=== PATIENT | female | born 1955 | race Caucasian/White ===

== ENCOUNTER 2019-09-15 08:39 | Outpatient (RCR) | payer SELFPAY | END 2019-09-16 23:59 | disposition home or self-care (01) | LOC: WOUND 08:39 | PROVIDERS: Family Provider Family Medicine; PCP Family Medicine; Visit Provider Nurse Practitioner Family | DX: I96 Gangrene, not elsewhere classified (principal); L89.619 Pressure ulcer of right heel, unspecified stage | CPT/HCPCS: 11042; 87070; 87176; 87205; 99203; 99214; G0463; L3260 ==

== ENCOUNTER 2019-10-16 12:56 | Outpatient (RCR) | payer SELFPAY ==
--- NOTE | 2019-10-06 08:00 | USCV_ITS ---
Geraldine Morris Age: 63 Gender: F : 1955 Exam Date: 10/06/2019 08:04 Ordering Phys: Britni Johnson DO Technologist: Dennise Winston [place] [facility] [place]: HISTORY: non healing ulcer right heel. PROCEDURES: Bilateral duplex Venous Insufficiency study of the Deep and Superficial systems was carried out according to normal protocol with the patient in supine positon for deep system and dependent position for the superficial system. FINDINGS: No DVT or superficial thrombus seen in right or left leg. Reflux noted in SFJ on right and left Vessel diameters and reflux times noted above. The veins were found to be easily compressible with spontaneous blood flow. Non pulsatile flow pattern. CONCLUSIONS No evidence of DVT in the above-mentioned identifiable veins. Significant venous reflux of greater than 500 ms were noted at the saphenofemoral junction bilaterally. The saphenofemoral junctions were found to be more than 1 cm deep from the surface. The venous dimensions, depth from the surface and the reflux times are as mentioned above Dr Denise Pappas MD [facility] (Electronically Signed) Final Date: 06 October 2019 15:29 S
--- NOTE | 2019-10-07 15:45 | USCV_ITS ---
Geraldine Morris Age: 63 Gender: F : 1955 Exam Date: 10/07/2019 15:28 Ordering Phys: Britni Johnson DO Technologist: Tiffanie Jarrett Exam Location: [facility] [place] Indication: REDNESS, NON-HEALING ULCER RIGHT LEFT Brachial 144.00 mmHg Brachial 148.00 mmHg Pressure (mmHg) Waveform Pressure (mmHg) Waveform 145.00 Above Knee 176.00 173.00 Below Knee 165.00 170.00 [employer] 156.00 150.00 DPA 144.00 1.15 Ankle/Brachial Index 1.05 149.00 Pre-Exercise Toe Pressure 146.00 1.01 Pre-Exercise Toe/Brachial Index 0.99 FINDINGS Normal resting ABIs and TBIs bilaterally PVR waveforms showing some blunting of the dicrotic notch CONCLUSIONS No significant arterial obstruction, bilaterally, based on the above findings. Some features of arterio sclerosis Dr Denise Pappas MD [facility] (Electronically Signed) Final Date: 07 October 2019 17:42 S
== END 2019-10-16 23:59 | disposition home or self-care (01) ==
LOC: WOUND 12:56
PROVIDERS: Family Provider Family Medicine; PCP Family Medicine; Visit Provider Emergency Medicine
DX: I96 Gangrene, not elsewhere classified (principal); L97.412 Non-pressure chronic ulcer of right heel and midfoot with fat layer exposed
CPT/HCPCS: 11042; 29581; 93923; 93970

== ENCOUNTER 2019-10-20 14:04 | Outpatient (CLI) | payer SELFPAY | END 2019-10-20 14:05 | disposition home or self-care (01) | LOC: WOUND 14:05 | PROVIDERS: Family Provider Family Medicine; PCP Family Medicine; Visit Provider Nurse Practitioner Family | DX: I96 Gangrene, not elsewhere classified (principal); L89.619 Pressure ulcer of right heel, unspecified stage | CPT/HCPCS: G0463; L3260 ==

== ENCOUNTER 2019-10-23 14:12 | Outpatient (CLI) | payer SELFPAY | END 2019-10-23 14:13 | disposition home or self-care (01) | LOC: WOUND 14:12 | PROVIDERS: Family Provider Family Medicine; PCP Family Medicine; Visit Provider Nurse Practitioner Family | DX: Z51.89 Encounter for other specified aftercare (principal) | CPT/HCPCS: 29581 ==

== ENCOUNTER 2019-10-27 14:44 | Outpatient (RCR) | payer SELFPAY | END 2019-11-16 23:59 | disposition home or self-care (01) | LOC: WOUND 14:44 | PROVIDERS: Family Provider Family Medicine; PCP Family Medicine; Visit Provider Nurse Practitioner Family | DX: I96 Gangrene, not elsewhere classified (principal); L97.412 Non-pressure chronic ulcer of right heel and midfoot with fat layer exposed | CPT/HCPCS: 11042 ==

== ENCOUNTER 2019-10-30 08:11 | Outpatient (CLI) | payer SELFPAY | END 2019-10-30 08:12 | disposition home or self-care (01) | LOC: WOUND 08:11 | PROVIDERS: Family Provider Family Medicine; PCP Family Medicine; Visit Provider Nurse Practitioner Family | DX: Z51.89 Encounter for other specified aftercare (principal) | CPT/HCPCS: G0463 ==

== ENCOUNTER 2019-11-03 10:51 | Outpatient (CLI) | payer SELFPAY | END 2019-11-03 10:52 | disposition home or self-care (01) | LOC: WOUND 10:52 | PROVIDERS: Family Provider Family Medicine; PCP Family Medicine; Visit Provider Nurse Practitioner Family | DX: I96 Gangrene, not elsewhere classified (principal); L89.619 Pressure ulcer of right heel, unspecified stage | CPT/HCPCS: 11042; A6446 ==

== ENCOUNTER → 2019-11-06 11:06 | Outpatient (BNVA) | payer SELFPAY | PROVIDERS: Family Provider Family Medicine; PCP Family Medicine; Visit Provider Internal Medicine Cardiovascular Disease | DX: I87.2 Venous insufficiency (chronic) (peripheral) (principal) | CPT/HCPCS: 80048; 85025; 87635 ==

== ENCOUNTER 2019-11-12 13:44 | Outpatient (CLI) | payer SELFPAY | END 2019-11-12 13:45 | disposition home or self-care (01) | LOC: WOUND 13:45 | PROVIDERS: Family Provider Family Medicine; PCP Family Medicine; Visit Provider Nurse Practitioner Family | DX: I96 Gangrene, not elsewhere classified (principal); L89.619 Pressure ulcer of right heel, unspecified stage | CPT/HCPCS: G0463; L4361; L4387 ==

== ENCOUNTER 2019-11-17 09:56 | Outpatient (CLI) | payer SELFPAY | END 2019-11-17 09:57 | disposition home or self-care (01) | LOC: WOUND 09:57 | PROVIDERS: Family Provider Family Medicine; PCP Family Medicine; Visit Provider Nurse Practitioner Family | DX: I96 Gangrene, not elsewhere classified (principal); L97.412 Non-pressure chronic ulcer of right heel and midfoot with fat layer exposed | CPT/HCPCS: 11042 ==

== ENCOUNTER 2019-11-24 09:42 | Outpatient (CLI) | payer SELFPAY | END 2019-11-24 09:43 | disposition home or self-care (01) | LOC: WOUND 09:43 | PROVIDERS: Family Provider Family Medicine; PCP Family Medicine; Visit Provider Nurse Practitioner Family | DX: I96 Gangrene, not elsewhere classified (principal); L97.412 Non-pressure chronic ulcer of right heel and midfoot with fat layer exposed | CPT/HCPCS: 11042 ==

== ENCOUNTER 2019-12-01 08:56 | Outpatient (CLI) | payer SELFPAY | END 2019-12-01 08:57 | disposition home or self-care (01) | LOC: WOUND 08:57 | PROVIDERS: Family Provider Family Medicine; PCP Family Medicine; Visit Provider Nurse Practitioner Family | DX: I96 Gangrene, not elsewhere classified (principal); L97.412 Non-pressure chronic ulcer of right heel and midfoot with fat layer exposed | CPT/HCPCS: 11042 ==

== ENCOUNTER 2020-05-06 08:24 | Outpatient (CLI) | payer SELFPAY | END 2020-05-06 08:25 | disposition home or self-care (01) | LOC: WOUND 08:25 | PROVIDERS: Family Provider Family Medicine; PCP Family Medicine; Visit Provider Nurse Practitioner Family | DX: L89.613 Pressure ulcer of right heel, stage 3 (principal) | CPT/HCPCS: 11042; 87070; 87077; 87176; 87186; 87205; G0463 ==

== ENCOUNTER 2020-05-20 09:21 | Outpatient (CLI) | payer SELFPAY | END 2020-05-20 09:22 | disposition home or self-care (01) | LOC: WOUND 09:23 | PROVIDERS: Family Provider Family Medicine; PCP Family Medicine; Visit Provider Nurse Practitioner Family | DX: I96 Gangrene, not elsewhere classified (principal); L89.613 Pressure ulcer of right heel, stage 3 | CPT/HCPCS: 11042 ==

== ENCOUNTER 2020-05-27 10:44 | Outpatient (CLI) | payer SELFPAY | END 2020-05-27 10:45 | disposition home or self-care (01) | LOC: WOUND 10:45 | PROVIDERS: Family Provider Family Medicine; PCP Family Medicine; Visit Provider Nurse Practitioner Family | DX: L89.613 Pressure ulcer of right heel, stage 3 (principal) | CPT/HCPCS: 11042 ==

== ENCOUNTER 2020-06-03 10:56 | Outpatient (CLI) | payer SELFPAY | END 2020-06-03 10:57 | disposition home or self-care (01) | LOC: WOUND 10:58 | PROVIDERS: Family Provider Family Medicine; PCP Family Medicine; Visit Provider Nurse Practitioner Family | DX: L89.613 Pressure ulcer of right heel, stage 3 (principal) | CPT/HCPCS: 11042 ==

== ENCOUNTER 2020-06-17 10:24 | Outpatient (CLI) | payer SELFPAY | END 2020-06-17 10:25 | disposition home or self-care (01) | LOC: WOUND 10:25 | PROVIDERS: Family Provider Family Medicine; PCP Family Medicine; Visit Provider Nurse Practitioner Family | DX: I96 Gangrene, not elsewhere classified (principal); L89.613 Pressure ulcer of right heel, stage 3 | CPT/HCPCS: 11042 ==

== ENCOUNTER 2020-06-24 10:06 | Outpatient (CLI) | payer OTHER, SELFPAY | END 2020-06-24 10:07 | disposition home or self-care (01) | LOC: WOUND 10:10 | PROVIDERS: Family Provider Family Medicine; PCP Family Medicine; Visit Provider Nurse Practitioner Family | DX: L89.613 Pressure ulcer of right heel, stage 3 (principal) | CPT/HCPCS: 11042 ==

== ENCOUNTER 2020-07-01 09:24 | Outpatient (CLI) | payer OTHER, SELFPAY | END 2020-07-01 09:25 | disposition home or self-care (01) | LOC: WOUND 09:24 | PROVIDERS: Family Provider Family Medicine; PCP Family Medicine; Visit Provider Nurse Practitioner Family | DX: L89.613 Pressure ulcer of right heel, stage 3 (principal) | CPT/HCPCS: 11042 ==

== ENCOUNTER 2020-07-08 09:27 | Outpatient (CLI) | payer OTHER, SELFPAY | END 2020-07-08 09:28 | disposition home or self-care (01) | LOC: WOUND 09:27 | PROVIDERS: Family Provider Family Medicine; PCP Family Medicine; Visit Provider Nurse Practitioner Family | DX: L89.613 Pressure ulcer of right heel, stage 3 (principal) | CPT/HCPCS: 11042 ==

== ENCOUNTER 2020-07-15 09:27 | Outpatient (CLI) | payer OTHER, SELFPAY | END 2020-07-15 09:28 | disposition home or self-care (01) | LOC: WOUND 09:27 | PROVIDERS: Family Provider Family Medicine; PCP Family Medicine; Visit Provider Nurse Practitioner Family | DX: I96 Gangrene, not elsewhere classified (principal); L89.613 Pressure ulcer of right heel, stage 3 | CPT/HCPCS: 11042 ==

== ENCOUNTER 2020-07-22 09:44 | Outpatient (CLI) | payer OTHER, SELFPAY | END 2020-07-22 09:45 | disposition home or self-care (01) | LOC: WOUND 09:45 | PROVIDERS: PCP Family Medicine; Visit Provider Nurse Practitioner Family | DX: L89.613 Pressure ulcer of right heel, stage 3 (principal) | CPT/HCPCS: 11042 ==

== ENCOUNTER 2020-07-22 13:43 | Outpatient (CLI) | payer OTHER, SELFPAY ==
--- NOTE | 2020-07-22 13:59 | CT_ITS ---
WS: [id number] CT NECK TECHNIQUE: Contrast-enhanced CT of the neck with coronal and sagittal reformatted images. CLINICAL INFORMATION: HX OF HODGKIN'S LYMPHOMA, LOCALIZED SWELLING OF NECK,DYSPNEA COMPARISON: None. DLP: 2014.[address] scans at [facility] use at least one of these dose optimization techniques: automat ed exposure control; mA and/or kV adjustment per patient size (includes targeted exams where dose is matched to clinical indication); or iterative reconstruction. FINDINGS: Bilateral markers lower neck in the area of clinical concern. No evidence of underlying mass or lesio n in the lower neck bilaterally. Underlying external jugular vein near the palpable markers bilateral ly. No suspicious underlying lesions. Parotid glands are normal. Normal submandibular glands. No evidence of supraglottic or glottic mass. Normal piriform sinuses. No cervical lymphadenopathy. Normal thyroid gland. Lung apices are well aerated.Moderate spondylitic changes cervical spine. CT/CT neck w con* [id number] IMPRESSION: 1. No suspicious underlying mass or lesion in the areas of palpable concern. 2. No cervical lymphadenopathy. 3. Normal salivary glands. 4. No evidence of supraglottic or glottic mass.
--- NOTE | 2020-07-22 13:59 | CT_ITS ---
WS: [id number] CT CHEST TECHNIQUE: Contrast enhanced CT of the chest with coronal and sagittal reformatted images. CLINICAL INFORMATION: HX OF HODGKINS LYMPHOMA, LOCALIZED SWELLING OF NECK, DYSPNEA COMPARISON: None. DLP: 571.[address] scans at [facility] use at least one of these dose optimization techniques: automat ed exposure control; mA and/or kV adjustment per patient size (includes targeted exams where dose is matched to clinical indication); or iterative reconstruction. FINDINGS: Mild chronic emphysematous changes. No acute pulmonary infiltrates. Slight subsegmental atelectasis i n the lung bases. No focal pneumonia or pleural fluid. No mediastinal or hilar lymphadenopathy. No axillary lymphadenopathy. Normal caliber thoracic aorta. Proximal main pulmonary arteries are normal. Adrenal glands are normal. Diffuse fatty infiltration liver. Cholecystectomy clips. CT/CT chest w con* [id number] IMPRESSION: 1. Mild chronic emphysematous changes. No acute pulmonary infiltrates. 2. Slight subsegmental atelectasis in the lung bases. 3. No mediastinal or hilar lymphadenopathy. No axillary lymphadenopathy. 4. Diffuse fatty infiltration liver. 5. Cholecystectomy clips.
[2020-07-22 14:48] LABS: Blood Urea Nitrogen 11 mg/dL (8-23); Glomerular Filtration Rate 84.2 mL/min (90-130)
[2020-07-22] MEDS: iohexol 300 mg/mL 100 mL Btl IV ×2 (14:57→15:17)
== END 2020-07-22 13:44 | disposition home or self-care (01) ==
LOC: RADWPI 13:48
PROVIDERS: PCP Family Medicine; Visit Provider Family Medicine
DX: Z85.71 Personal history of Hodgkin lymphoma (principal); R22.1 Localized swelling, mass and lump, neck; R06.00 Dyspnea, unspecified; K76.0 Fatty (change of) liver, not elsewhere classified; J98.11 Atelectasis
CPT/HCPCS: 70491; 71260; 82565; 84520; Q9967

== ENCOUNTER 2020-08-05 09:22 | Outpatient (CLI) | payer OTHER, SELFPAY | END 2020-08-05 09:23 | disposition home or self-care (01) | LOC: WOUND 09:23 | PROVIDERS: PCP Family Medicine; Visit Provider Nurse Practitioner Family | DX: L89.613 Pressure ulcer of right heel, stage 3 (principal) | CPT/HCPCS: 11042 ==

== ENCOUNTER 2020-08-12 09:44 | Outpatient (CLI) | payer OTHER, SELFPAY | END 2020-08-12 09:45 | disposition home or self-care (01) | LOC: WOUND 09:44 | PROVIDERS: PCP Family Medicine; Visit Provider Nurse Practitioner Family | DX: I96 Gangrene, not elsewhere classified (principal); L89.613 Pressure ulcer of right heel, stage 3 | CPT/HCPCS: 11042 ==

== ENCOUNTER 2020-08-19 09:07 | Outpatient (CLI) | payer OTHER, SELFPAY | END 2020-08-19 09:08 | disposition home or self-care (01) | LOC: WOUND 09:07 | PROVIDERS: PCP Family Medicine; Visit Provider Nurse Practitioner Family | DX: L89.613 Pressure ulcer of right heel, stage 3 (principal) | CPT/HCPCS: 11042 ==

== ENCOUNTER 2020-08-26 09:21 | Outpatient (CLI) | payer OTHER, SELFPAY | END 2020-08-26 09:22 | disposition home or self-care (01) | LOC: WOUND 09:22 | PROVIDERS: PCP Family Medicine; Visit Provider Nurse Practitioner Family | DX: L89.613 Pressure ulcer of right heel, stage 3 (principal) | CPT/HCPCS: 11042 ==

== ENCOUNTER 2020-09-02 09:19 | Outpatient (CLI) | payer OTHER, SELFPAY | END 2020-09-02 09:20 | disposition home or self-care (01) | LOC: WOUND 09:19 | PROVIDERS: PCP Family Medicine; Visit Provider Nurse Practitioner Family | DX: L89.613 Pressure ulcer of right heel, stage 3 (principal) | CPT/HCPCS: 11042 ==

== ENCOUNTER 2020-09-09 09:21 | Outpatient (CLI) | payer OTHER, SELFPAY | END 2020-09-09 09:22 | disposition home or self-care (01) | LOC: WOUND 09:22 | PROVIDERS: PCP Family Medicine; Visit Provider Nurse Practitioner Family | DX: I96 Gangrene, not elsewhere classified (principal); L89.613 Pressure ulcer of right heel, stage 3; Z87.891 Personal history of nicotine dependence | CPT/HCPCS: 11042 ==

== ENCOUNTER 2020-09-16 08:45 | Outpatient (CLI) | payer OTHER, SELFPAY | END 2020-09-16 08:46 | disposition home or self-care (01) | LOC: WOUND 08:46 | PROVIDERS: PCP Family Medicine; Visit Provider Nurse Practitioner Family | DX: I96 Gangrene, not elsewhere classified (principal); L89.613 Pressure ulcer of right heel, stage 3; Z87.891 Personal history of nicotine dependence | CPT/HCPCS: 11042 ==

== ENCOUNTER 2020-09-23 08:43 | Outpatient (CLI) | payer OTHER, SELFPAY | END 2020-09-23 08:44 | disposition home or self-care (01) | LOC: WOUND 08:43 | PROVIDERS: PCP Family Medicine; Visit Provider Nurse Practitioner Family | DX: L89.613 Pressure ulcer of right heel, stage 3 (principal) | CPT/HCPCS: 11042 ==

== ENCOUNTER 2020-09-30 09:37 | Outpatient (CLI) | payer OTHER, SELFPAY | END 2020-09-30 09:38 | disposition home or self-care (01) | LOC: WOUND 09:37 | PROVIDERS: PCP Family Medicine; Visit Provider Nurse Practitioner Family | DX: L89.613 Pressure ulcer of right heel, stage 3 (principal) | CPT/HCPCS: 11042 ==

== ENCOUNTER 2020-10-07 09:27 | Outpatient (CLI) | payer OTHER, SELFPAY | END 2020-10-07 09:28 | disposition home or self-care (01) | LOC: WOUND 09:28 | PROVIDERS: PCP Family Medicine; Visit Provider Nurse Practitioner Family | DX: L89.613 Pressure ulcer of right heel, stage 3 (principal) | CPT/HCPCS: 11042 ==

== ENCOUNTER 2020-10-14 08:37 | Outpatient (CLI) | payer OTHER, SELFPAY | END 2020-10-14 08:38 | disposition home or self-care (01) | LOC: WOUND 08:41 | PROVIDERS: PCP Family Medicine; Visit Provider Nurse Practitioner Family | DX: L89.613 Pressure ulcer of right heel, stage 3 (principal) | CPT/HCPCS: 11042 ==

== ENCOUNTER 2020-10-21 09:10 | Outpatient (CLI) | payer OTHER, SELFPAY | END 2020-10-21 09:11 | disposition home or self-care (01) | LOC: WOUND 09:11 | PROVIDERS: PCP Family Medicine; Visit Provider Nurse Practitioner Family | DX: I96 Gangrene, not elsewhere classified (principal); L89.613 Pressure ulcer of right heel, stage 3 | CPT/HCPCS: 11042 ==

== ENCOUNTER 2020-10-22 10:15 | Outpatient (CLI) | payer OTHER, SELFPAY ==
--- NOTE | 2020-10-22 10:23 | XR_ITS ---
WS: [id number] Right foot, 3 views, 10/22/2020 Clinical Data: PRESSURE ULCER R HEEL Comparison: None. Findings: No fractures or dislocations are seen. No bone destruction or erosion is noted. There is a bunion at the head of the right first metatarsal.There is a small Achilles spur and a plantar spur. XR/XR foot RT min 3V* [id number] Impression: Negative for definite soft tissue ulcer of the right foot.
== END 2020-10-22 10:16 | disposition home or self-care (01) ==
PROVIDERS: PCP Family Medicine; Visit Provider Nurse Practitioner Family
DX: L89.619 Pressure ulcer of right heel, unspecified stage (principal)
CPT/HCPCS: 73630

== ENCOUNTER 2020-11-18 08:53 | Outpatient (CLI) | payer MEDICARE, SELFPAY | END 2020-11-18 08:54 | disposition home or self-care (01) | LOC: WOUND 08:57 | PROVIDERS: PCP Family Medicine; Visit Provider Nurse Practitioner Family | DX: I96 Gangrene, not elsewhere classified (principal); L89.613 Pressure ulcer of right heel, stage 3 | CPT/HCPCS: 11042 ==

== ENCOUNTER 2020-11-25 09:01 | Outpatient (CLI) | payer MEDICARE, SELFPAY | END 2020-11-25 09:02 | disposition home or self-care (01) | LOC: WOUND 09:03 | PROVIDERS: PCP Family Medicine; Visit Provider Nurse Practitioner Family | DX: I96 Gangrene, not elsewhere classified (principal); L89.613 Pressure ulcer of right heel, stage 3 | CPT/HCPCS: 11042 ==

== ENCOUNTER 2020-12-02 09:09 | Outpatient (CLI) | payer MEDICARE, SELFPAY | END 2020-12-02 09:10 | disposition home or self-care (01) | LOC: WOUND 09:10 | PROVIDERS: PCP Family Medicine; Visit Provider Nurse Practitioner Family | DX: I96 Gangrene, not elsewhere classified (principal); L89.613 Pressure ulcer of right heel, stage 3 | CPT/HCPCS: 11042 ==

== ENCOUNTER 2020-12-09 09:36 | Outpatient (CLI) | payer MEDICARE, SELFPAY | END 2020-12-09 09:37 | disposition home or self-care (01) | LOC: WOUND 09:37 | PROVIDERS: PCP Family Medicine; Visit Provider Nurse Practitioner Family | DX: L89.613 Pressure ulcer of right heel, stage 3 (principal) | CPT/HCPCS: 11042 ==

== ENCOUNTER 2020-12-16 10:10 | Outpatient (CLI) | payer MEDICARE, SELFPAY | END 2020-12-16 10:11 | disposition home or self-care (01) | LOC: WOUND 10:11 | PROVIDERS: PCP Family Medicine; Visit Provider Nurse Practitioner Family | DX: L89.613 Pressure ulcer of right heel, stage 3 (principal) | CPT/HCPCS: 11042 ==

== ENCOUNTER 2020-12-23 09:38 | Outpatient (CLI) | payer MEDICARE, SELFPAY | END 2020-12-23 09:39 | disposition home or self-care (01) | LOC: WOUND 09:40 | PROVIDERS: PCP Family Medicine; Visit Provider Nurse Practitioner Family | DX: L89.613 Pressure ulcer of right heel, stage 3 (principal) | CPT/HCPCS: 11042 ==

== ENCOUNTER 2021-01-06 10:48 | Outpatient (CLI) | payer MEDICARE, SELFPAY | END 2021-01-06 10:49 | disposition home or self-care (01) | LOC: WOUND 10:50 | PROVIDERS: PCP Family Medicine; Visit Provider Nurse Practitioner Family | DX: L89.613 Pressure ulcer of right heel, stage 3 (principal) | CPT/HCPCS: 11042 ==

== ENCOUNTER 2021-01-13 10:24 | Outpatient (CLI) | payer MEDICARE, SELFPAY | END 2021-01-13 10:25 | disposition home or self-care (01) | LOC: WOUND 10:32 | PROVIDERS: PCP Family Medicine; Visit Provider Nurse Practitioner Family | DX: L89.613 Pressure ulcer of right heel, stage 3 (principal) | CPT/HCPCS: 11042 ==

== ENCOUNTER 2021-01-20 10:57 | Outpatient (CLI) | payer MEDICARE, SELFPAY | END 2021-01-20 10:58 | disposition home or self-care (01) | LOC: WOUND 11:01 | PROVIDERS: PCP Family Medicine; Visit Provider Emergency Medicine | DX: I96 Gangrene, not elsewhere classified (principal); L89.613 Pressure ulcer of right heel, stage 3; Z87.891 Personal history of nicotine dependence | CPT/HCPCS: 15275; C1849 ==

== ENCOUNTER 2021-01-27 11:08 | Outpatient (CLI) | payer MEDICARE, SELFPAY | END 2021-01-27 11:09 | disposition home or self-care (01) | LOC: WOUND 11:10 | PROVIDERS: PCP Family Medicine; Visit Provider Emergency Medicine | DX: L89.613 Pressure ulcer of right heel, stage 3 (principal); Z87.891 Personal history of nicotine dependence | CPT/HCPCS: 99212 ==

== ENCOUNTER 2021-02-03 09:38 | Outpatient (CLI) | payer MEDICARE, SELFPAY | END 2021-02-03 09:39 | disposition home or self-care (01) | LOC: WOUND 09:39 | PROVIDERS: PCP Family Medicine; Visit Provider Nurse Practitioner Family | DX: L89.613 Pressure ulcer of right heel, stage 3 (principal); Z87.891 Personal history of nicotine dependence | CPT/HCPCS: 11042 ==

== ENCOUNTER 2021-02-10 09:13 | Outpatient (CLI) | payer MEDICARE, SELFPAY | END 2021-02-10 09:14 | disposition home or self-care (01) | LOC: WOUND 09:13 | PROVIDERS: PCP Family Medicine; Visit Provider Emergency Medicine | DX: L89.613 Pressure ulcer of right heel, stage 3 (principal) | CPT/HCPCS: 11042 ==

== ENCOUNTER → 2021-02-14 08:37 | Outpatient (BNVA) | payer MEDICARE, SELFPAY | PROVIDERS: PCP Family Medicine; Referring Provider Nurse Practitioner Family; Visit Provider Podiatrist Foot & Ankle Surgery | DX: M79.671 Pain in right foot (principal); R26.89 Other abnormalities of gait and mobility; M24.571 Contracture, right ankle; L97.412 Non-pressure chronic ulcer of right heel and midfoot with fat layer exposed | CPT/HCPCS: 73630; 97760; L4361 ==

== ENCOUNTER 2021-02-14 14:35 | Outpatient (CLI) | payer MEDICARE, SELFPAY | END 2021-02-14 14:36 | disposition home or self-care (01) | LOC: SPT 14:36 | PROVIDERS: PCP Family Medicine; Visit Provider Podiatrist Foot & Ankle Surgery | DX: M79.671 Pain in right foot (principal); R26.89 Other abnormalities of gait and mobility; M24.571 Contracture, right ankle; L97.412 Non-pressure chronic ulcer of right heel and midfoot with fat layer exposed | CPT/HCPCS: 97760; L4361 ==

== ENCOUNTER 2021-02-17 09:31 | Outpatient (CLI) | payer MEDICARE, SELFPAY | END 2021-02-17 09:32 | disposition home or self-care (01) | LOC: WOUND 09:32 | PROVIDERS: PCP Family Medicine; Visit Provider Emergency Medicine | DX: L89.613 Pressure ulcer of right heel, stage 3 (principal); Z87.891 Personal history of nicotine dependence | CPT/HCPCS: 11042 ==

== ENCOUNTER 2021-02-24 09:44 | Outpatient (CLI) | payer MEDICARE, SELFPAY | END 2021-02-24 09:45 | disposition home or self-care (01) | LOC: WOUND 09:46 | PROVIDERS: PCP Family Medicine; Visit Provider Emergency Medicine | DX: L89.613 Pressure ulcer of right heel, stage 3 (principal); Z87.891 Personal history of nicotine dependence | CPT/HCPCS: 11042 ==

== ENCOUNTER 2021-03-03 10:17 | Outpatient (CLI) | payer MEDICARE, SELFPAY | END 2021-03-03 10:18 | disposition home or self-care (01) | LOC: WOUND 10:19 | PROVIDERS: PCP Family Medicine; Visit Provider Emergency Medicine | DX: Z09 Encounter for follow-up examination after completed treatment for conditions other than malignant neoplasm (principal); Z87.891 Personal history of nicotine dependence | CPT/HCPCS: 99212 ==

== ENCOUNTER → 2021-09-14 14:28 | Outpatient (BNVA) | payer MEDICARE, SELFPAY | PROVIDERS: PCP Family Medicine; Referring Provider Family Medicine; Visit Provider Specialist | DX: M25.532 Pain in left wrist (principal); M79.89 Other specified soft tissue disorders | CPT/HCPCS: 73110 ==

== ENCOUNTER 2021-11-22 08:39 | Outpatient (CLI) | payer MEDICARE, SELFPAY ==
--- NOTE | 2021-11-22 08:45 | MR_ITS ---
WS: [id number] MRI LEFT WRIST without CONTRAST. COMPARISON: Radiograph 09/14/2021 and prior MRI 05/07/2017 Multiplanar, multisequence imaging is performed without contrast. This study is extremely limited as patient was unable to remain still for this examination. Despite m ultiple attempts there is significant motion artifact and the positioning of the wrist is suboptimal. There is increased fluid in the distal radial ulnar joint which will often will indicate an injury an d tear to the TFCC. The TFCC is not adequately visualized to confirm tear. Mild narrowing of the radi al ulnar joint space. Grossly the scapholunate ligament is intact. No scaphoid fracture identified. N o marrow edema. There are a few small subchondral cysts noted within the capitate and moderate arthri tis at the STT articulation. Small cup subchondral cyst in the proximal fifth metacarpal. MR/MR wrist LT wo con* [id number] IMPRESSION: 1. Extremely limited evaluation of the wrist due to patient motion and inabili ty to remain still. 2. Increase fluid in the distal radial ulnar joint space may be secondary find ing of a triangular fibrocartilage complex tear. 3. 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 4. No fractures or marrow edema.
== END 2021-11-22 08:40 | disposition home or self-care (01) ==
LOC: RAD 08:41
PROVIDERS: PCP Family Medicine; Visit Provider Specialist
DX: M25.532 Pain in left wrist (principal)
CPT/HCPCS: 73221

== ENCOUNTER → 2021-12-26 10:32 | Outpatient (BNVA) | payer MEDICARE, SELFPAY | PROVIDERS: PCP Family Medicine; Visit Provider Specialist | DX: M18.12 Unilateral primary osteoarthritis of first carpometacarpal joint, left hand (principal); R22.32 Localized swelling, mass and lump, left upper limb; M25.532 Pain in left wrist; M25.372 Other instability, left ankle; R26.89 Other abnormalities of gait and mobility | CPT/HCPCS: 99213 ==

== ENCOUNTER → 2022-02-13 10:13 | Outpatient (BNVA) | payer MEDICARE, SELFPAY | PROVIDERS: PCP Family Medicine; Referring Provider Specialist; Visit Provider Specialist | DX: G56.03 Carpal tunnel syndrome, bilateral upper limbs (principal); G56.21 Lesion of ulnar nerve, right upper limb | CPT/HCPCS: 95910; 95913 ==

== ENCOUNTER → 2022-02-22 09:40 | Outpatient (BNVA) | payer MEDICARE, SELFPAY | PROVIDERS: PCP Family Medicine; Visit Provider Podiatrist Foot & Ankle Surgery | DX: M25.372 Other instability, left ankle (principal); R26.89 Other abnormalities of gait and mobility | CPT/HCPCS: 99214 ==

== ENCOUNTER → 2022-03-07 11:23 | Outpatient (BNVA) | payer MEDICARE, SELFPAY | PROVIDERS: PCP Family Medicine; Visit Provider Podiatrist Foot & Ankle Surgery | DX: M25.372 Other instability, left ankle (principal); R26.89 Other abnormalities of gait and mobility | CPT/HCPCS: 99213; 99214 ==

== ENCOUNTER → 2022-04-10 13:50 | Outpatient (BNVA) | payer MEDICARE, SELFPAY | PROVIDERS: PCP Family Medicine; Visit Provider Podiatrist Foot & Ankle Surgery | DX: M25.372 Other instability, left ankle (principal); R26.89 Other abnormalities of gait and mobility | CPT/HCPCS: 99214 ==

== ENCOUNTER → 2022-04-25 14:42 | Outpatient (BNVA) | payer MEDICARE, SELFPAY | PROVIDERS: PCP Family Medicine; Visit Provider Podiatrist Foot & Ankle Surgery | DX: M25.372 Other instability, left ankle (principal); R26.89 Other abnormalities of gait and mobility; L97.419 Non-pressure chronic ulcer of right heel and midfoot with unspecified severity | CPT/HCPCS: 99214 ==

== ENCOUNTER → 2022-05-01 09:34 | Outpatient (BNVA) | payer MEDICARE, SELFPAY | PROVIDERS: PCP Family Medicine; Visit Provider Obstetrics & Gynecology | DX: R53.83 Other fatigue (principal); T81.89XA Other complications of procedures, not elsewhere classified, initial encounter; Y83.8 Other surgical procedures as the cause of abnormal reaction of the patient, or of later complication, without mention of misadventure at the time of the procedure | CPT/HCPCS: 80053; 83036; 84443; 85025 ==

== ENCOUNTER → 2022-05-16 13:03 | Outpatient (BNVA) | payer MEDICARE, SELFPAY | PROVIDERS: PCP Family Medicine; Visit Provider Podiatrist Foot & Ankle Surgery | DX: L97.412 Non-pressure chronic ulcer of right heel and midfoot with fat layer exposed (principal); M25.372 Other instability, left ankle; R26.89 Other abnormalities of gait and mobility | CPT/HCPCS: 11042 ==

== ENCOUNTER → 2022-05-29 10:53 | Outpatient (BNVA) | payer MEDICARE, SELFPAY | PROVIDERS: PCP Family Medicine; Visit Provider Obstetrics & Gynecology | DX: G89.18 Other acute postprocedural pain (principal); N83.312 Acquired atrophy of left ovary; Z90.710 Acquired absence of both cervix and uterus; L97.412 Non-pressure chronic ulcer of right heel and midfoot with fat layer exposed; M25.372 Other instability, left ankle; R26.89 Other abnormalities of gait and mobility | CPT/HCPCS: 76830; 76857; 99213 ==

== ENCOUNTER → 2022-06-14 09:00 | Outpatient (BNVA) | payer MEDICARE, SELFPAY | PROVIDERS: PCP Family Medicine; Visit Provider Podiatrist Foot & Ankle Surgery | DX: L97.412 Non-pressure chronic ulcer of right heel and midfoot with fat layer exposed (principal); M25.372 Other instability, left ankle; R26.89 Other abnormalities of gait and mobility | CPT/HCPCS: 73650; 99214 ==

== ENCOUNTER → 2022-07-05 09:42 | Outpatient (BNVA) | payer MEDICARE, SELFPAY | PROVIDERS: PCP Family Medicine; Visit Provider Podiatrist Foot & Ankle Surgery | DX: M25.372 Other instability, left ankle (principal); R26.89 Other abnormalities of gait and mobility; L97.412 Non-pressure chronic ulcer of right heel and midfoot with fat layer exposed | CPT/HCPCS: 99213 ==

== ENCOUNTER → 2022-08-02 13:07 | Outpatient (BNVA) | payer MEDICARE, SELFPAY | PROVIDERS: PCP Family Medicine; Visit Provider Podiatrist Foot & Ankle Surgery | DX: L97.412 Non-pressure chronic ulcer of right heel and midfoot with fat layer exposed (principal); R26.89 Other abnormalities of gait and mobility; M25.372 Other instability, left ankle; B35.3 Tinea pedis | CPT/HCPCS: 11042; 99213 ==

== ENCOUNTER → 2022-08-23 14:27 | Outpatient (BNVA) | payer MEDICARE, SELFPAY | PROVIDERS: PCP Electrodiagnostic Medicine; Visit Provider Podiatrist Foot & Ankle Surgery | DX: L97.412 Non-pressure chronic ulcer of right heel and midfoot with fat layer exposed (principal); R26.89 Other abnormalities of gait and mobility; M25.372 Other instability, left ankle; M25.371 Other instability, right ankle | CPT/HCPCS: 99214 ==

== ENCOUNTER → 2022-09-12 13:47 | Outpatient (BNVA) | payer MEDICARE, SELFPAY | PROVIDERS: PCP Electrodiagnostic Medicine; Visit Provider Podiatrist Foot & Ankle Surgery | DX: M25.372 Other instability, left ankle (principal); R26.89 Other abnormalities of gait and mobility; L97.412 Non-pressure chronic ulcer of right heel and midfoot with fat layer exposed; M25.371 Other instability, right ankle | CPT/HCPCS: 99213 ==

== ENCOUNTER 2022-09-18 13:15 | Outpatient (CLI) | payer MEDICARE, SELFPAY ==
--- NOTE | 2022-09-18 | XR_ITS ---
WS: [id number] DEXA (DUAL ENERGY X-RAY ABSORPTIOMETRY) Bone mineral density was performed using a Qapa machine. HISTORY: OSTEOPOROSIS COMPARISON: 01/17/2017 Lumbar spine BMD (L1-L3): 1.192 T score: 0.2 Z score: 1.3 Total hip BMD: Left: 1.034 g/cm2. T score: 0.2 Z score: 1.1 Right: 0.906 g/cm2. T score: -0.8 Z score: 0.1 10 year probability of a major osteoporotic fracture is 13.1%. Compared to the prior study from 01/17/2017. Lumbar spine bone mineral density has increased by 11.0%. Bilateral hips bone mineral density has increased by 5.9%. XR/XR DEXA axial skeleton* [id number] IMPRESSION: NORMAL BONE MINERAL DENSITY based upon the WHO classification for females. Significant increase in bone mineral density within the lumbar spine and hips s chiquita the prior study.
--- NOTE | 2022-09-18 | MM_ITS ---
WS: [id number] BILATERAL 3D TOMOSYNTHESIS DIGITAL SCREENING MAMMOGRAPHY WITH CAD CLINICAL INFORMATION: SCREENING HISTORY: Screening mammogram. No current complaints. COMPARISON: 2017 TECHNIQUE: Bilateral CC and MLO views. FINDINGS: Scattered fibroglandular densities bilaterally. No suspicious focal mass, asymmetry, calcifications, or architectural distortion. No evidence of malignancy. Incidental secretory and punctate calcificati ons. Lucent centered calcifications. Vascular calcification. MM/[place] [id number] IMPRESSION: BI-RADS: 2-Benign FOLLOW UP: 1 Year Follow-up Recommend return to annual screening mammography.
== END 2022-09-18 13:16 | disposition home or self-care (01) ==
PROVIDERS: PCP Electrodiagnostic Medicine; Visit Provider Nurse Practitioner Family
DX: M81.0 Age-related osteoporosis without current pathological fracture (principal); Z12.31 Encounter for screening mammogram for malignant neoplasm of breast
CPT/HCPCS: 77063; 77067; 77080

== ENCOUNTER → 2022-10-04 13:46 | Outpatient (BNVA) | payer MEDICARE, SELFPAY | PROVIDERS: PCP Electrodiagnostic Medicine; Visit Provider Podiatrist Foot & Ankle Surgery | DX: L97.412 Non-pressure chronic ulcer of right heel and midfoot with fat layer exposed (principal); M25.372 Other instability, left ankle; R26.89 Other abnormalities of gait and mobility; M25.371 Other instability, right ankle | CPT/HCPCS: 99213 ==

== ENCOUNTER → 2022-10-25 13:57 | Outpatient (BNVA) | payer MEDICARE, SELFPAY | PROVIDERS: PCP Electrodiagnostic Medicine; Visit Provider Podiatrist Foot & Ankle Surgery | DX: Z51.89 Encounter for other specified aftercare (principal); M25.372 Other instability, left ankle; R26.89 Other abnormalities of gait and mobility; M25.371 Other instability, right ankle | CPT/HCPCS: 99213 ==

== ENCOUNTER → 2022-10-31 09:55 | Outpatient (BNVA) | payer MEDICARE, SELFPAY | PROVIDERS: PCP Electrodiagnostic Medicine; Visit Provider Internal Medicine Cardiovascular Disease | DX: L98.499 Non-pressure chronic ulcer of skin of other sites with unspecified severity (principal); I87.2 Venous insufficiency (chronic) (peripheral); R03.0 Elevated blood-pressure reading, without diagnosis of hypertension | CPT/HCPCS: 99204 ==

== ENCOUNTER 2022-11-09 11:59 | Outpatient (CLI) | payer MEDICARE, SELFPAY ==
--- NOTE | 2022-11-09 12:30 | USCV_ITS ---
Geraldine Morris Age: 66 Gender: F : 1955 Exam Date: 11/09/2022 12:44 Ordering Phys: Denise Pappas MD ([email or web address]) Technologist: FUENTES Exam Location[place] [facility] [place]: HISTORY: PROCEDURES: FINDINGS: All deep veins demonstrated compressibility without evidence of intraluminal thrombus or increased echogenicity. Spectral analysis of Doppler signals demonstrates normal response to compression maneuvers indicating patency without obstruction. Reflux determinations were made with the patient in the dependent position, the weight being on the contralateral leg. No notable reflux was seen at this time. The veins were found to be easily compressible with spontaneous blood flow. Non pulsatile flow pattern. CONCLUSIONS No DVTin the bilateral lower extremities. No evidence of any significant insufficiency, bilaterally Dr Denise Pappas MD [facility] (Electronically Signed) Final Date: 11 December 2022 10:02 S
== END 2022-11-09 12:00 | disposition home or self-care (01) ==
LOC: RAD 12:04
PROVIDERS: PCP Electrodiagnostic Medicine; Visit Provider Internal Medicine Cardiovascular Disease
DX: L97.422 Non-pressure chronic ulcer of left heel and midfoot with fat layer exposed (principal)
CPT/HCPCS: 93970

== ENCOUNTER → 2022-11-16 14:59 | Outpatient (BNVA) | payer MEDICARE, SELFPAY | PROVIDERS: PCP Electrodiagnostic Medicine; Visit Provider Podiatrist Foot & Ankle Surgery | DX: Z51.89 Encounter for other specified aftercare (principal); M25.372 Other instability, left ankle; R26.89 Other abnormalities of gait and mobility; M25.371 Other instability, right ankle; L97.411 Non-pressure chronic ulcer of right heel and midfoot limited to breakdown of skin | CPT/HCPCS: 99213 ==

== ENCOUNTER → 2022-11-29 14:39 | Outpatient (BNVA) | payer MEDICARE, SELFPAY | PROVIDERS: PCP Electrodiagnostic Medicine; Referring Provider Electrodiagnostic Medicine; Visit Provider Specialist | DX: M25.551 Pain in right hip (principal); M25.552 Pain in left hip; M53.3 Sacrococcygeal disorders, not elsewhere classified; G89.29 Other chronic pain | CPT/HCPCS: 73523; 99204 ==

== ENCOUNTER → 2022-12-07 15:24 | Outpatient (BNVA) | payer MEDICARE, SELFPAY | PROVIDERS: PCP Electrodiagnostic Medicine; Visit Provider Podiatrist Foot & Ankle Surgery | DX: M25.372 Other instability, left ankle (principal); R26.89 Other abnormalities of gait and mobility; M25.371 Other instability, right ankle; L97.411 Non-pressure chronic ulcer of right heel and midfoot limited to breakdown of skin | CPT/HCPCS: 99213 ==

== ENCOUNTER → 2022-12-27 11:28 | Outpatient (BNVA) | payer MEDICARE, SELFPAY | PROVIDERS: PCP Electrodiagnostic Medicine; Visit Provider Podiatrist Foot & Ankle Surgery | DX: Z51.89 Encounter for other specified aftercare (principal); M25.372 Other instability, left ankle; R26.89 Other abnormalities of gait and mobility; M25.371 Other instability, right ankle; L97.411 Non-pressure chronic ulcer of right heel and midfoot limited to breakdown of skin | CPT/HCPCS: 99213 ==

== ENCOUNTER → 2023-03-27 10:27 | Outpatient (BNVA) | payer MEDICARE, SELFPAY | PROVIDERS: PCP Electrodiagnostic Medicine; Visit Provider Podiatrist Foot & Ankle Surgery | DX: M25.372 Other instability, left ankle (principal); M25.371 Other instability, right ankle | CPT/HCPCS: 99213 ==

== ENCOUNTER → 2023-09-25 11:25 | Outpatient (BNVA) | payer MEDICARE, SELFPAY | PROVIDERS: PCP Electrodiagnostic Medicine; Visit Provider Podiatrist Foot & Ankle Surgery | DX: M25.372 Other instability, left ankle (principal); R26.9 Unspecified abnormalities of gait and mobility; Z91.81 History of falling | CPT/HCPCS: 99213 ==

== ENCOUNTER 2023-09-26 10:37 | Outpatient (CLI) | payer MEDICARE, SELFPAY ==
--- NOTE | 2023-09-26 10:41 | MM_ITS ---
WS: [id number] BILATERAL SCREENING DIGITAL TOMOSYNTHESIS MAMMOGRAM WITH CAD HISTORY: SCREENING COMPARISON: 09/18/2022, 01/17/2017 Bilateral CC and MLO views with tomosynthesis and synthetic mammography submitted. Computer aided det ection analyzed. Breast composition: There are scattered areas of fibroglandular density. No suspicious masses, microc alcifications or architectural distortion. Benign calcifications in each breast. IMPRESSION: MM/[place] [id number] BI-RADS: 2-Benign FOLLOW UP: 1 Year Follow-up
== END 2023-09-26 10:38 | disposition home or self-care (01) ==
LOC: RAD 10:38
PROVIDERS: PCP Electrodiagnostic Medicine; Visit Provider Nurse Practitioner Family
DX: Z12.31 Encounter for screening mammogram for malignant neoplasm of breast (principal)
CPT/HCPCS: 77063; 77067

== ENCOUNTER → 2024-01-29 13:59 | Outpatient (BNVA) | payer MEDICARE, SELFPAY | PROVIDERS: PCP Electrodiagnostic Medicine; Referring Provider Nurse Practitioner Family; Visit Provider Internal Medicine Cardiovascular Disease | DX: R07.9 Chest pain, unspecified (principal); R00.2 Palpitations; I10 Essential (primary) hypertension; R94.31 Abnormal electrocardiogram [ECG] [EKG]; Z87.891 Personal history of nicotine dependence | CPT/HCPCS: 93005; 99214 ==

== ENCOUNTER 2024-02-11 12:26 | Outpatient (CLI) | payer MEDICARE, SELFPAY ==
[2024-02-11 13:10] LABS: Basophils # 0.1 10^3/uL (0.0-0.1); Basophils % 0.8 %; Eosinophils # 0.2 10^3/uL (0.0-0.8); Eosinophils % 2.8 %; Hematocrit 43.5 % (36-47); Lymphocytes % 37.9 %; Mean Corpuscular HGB Conc 33.1 g/dL (30-55); Mean Corpuscular Hemoglobin 29.7 pg (27-33); Mean Corpuscular Volume 89.7 fl (85-98); Mean Platelet Volume 13.4 fL (7.4-10.4); Monocytes # 0.6 10^3/uL (0.2-0.9); Monocytes % 7.6 %; Neutrophils # 4.05 10^3/uL (1.8-7.7); Neutrophils % 50.5 %; Nucleated Red Blood Cells % 0 %; Platelet Count 219 10^3/cmm (157-399); Red Blood Count 4.85 10^6/uL (3.85-5.65); Red Cell Distribution Width 14.6 % (12.1-15.1)
[2024-02-11 13:30] LABS: Slide Review Slide Review Perform
[2024-02-11 13:36] LABS: Anion Gap 14.5 (5-19); Blood Urea Nitrogen 10 mg/dL (8-23); Calcium 8.9 mg/dL (8.5-10.5); Carbon Dioxide 26 mmol/L (22-29); Chloride 104 mmol/L (98-107); Glomerular Filtration Rate 99.4 mL/min (90-130); Glucose 123 mg/dL (65-115); Osmolality Calculated 292 mOsm/kg (285-295); Potassium 3.5 mmol/L (3.5-5.1); Sodium 141 mmol/L (136-145)
== END 2024-02-11 12:27 | disposition home or self-care (01) ==
LOC: LAB 12:27
PROVIDERS: PCP Electrodiagnostic Medicine; Visit Provider Internal Medicine Cardiovascular Disease
DX: I10 Essential (primary) hypertension (principal); R00.2 Palpitations; I87.2 Venous insufficiency (chronic) (peripheral)
CPT/HCPCS: 36415; 80048; 84443; 85025

== ENCOUNTER → 2024-02-15 11:00 | Outpatient (BNVA) | payer MEDICARE, SELFPAY | PROVIDERS: PCP Electrodiagnostic Medicine; Visit Provider Nurse Practitioner Family | DX: I48.0 Paroxysmal atrial fibrillation (principal) | CPT/HCPCS: 99214 ==

== ENCOUNTER 2024-03-31 11:49 | Outpatient (CLI) | payer MEDICARE, SELFPAY ==
--- NOTE | 2024-03-31 12:00 | USCV_ITS ---
Geraldine Morris Age: 68 Gender: F : 1955 Exam Date: 03/31/2024 12:15 Ordering Phys: Sirena Johnson Technologist: [place] [facility] [place]: BP: 151 / 73 HR: 49 Rhythm: Sinus Technical Quality: Adequate MEASUREMENTS (Male / Female) Normal Values 2D ECHO LVOT Diameter 2.4 cm LV Ejection Fraction MOD 4C 59.7 % LV Ejection Fraction MOD 2C 71.9 % LV Ejection Fraction 2C AL 75.1 % LA Diameter 2.9 cm RA Systolic Volume 4C AL 38.7 ml RA Systolic Volume 4C MOD 38.6 ml LA Sys Volume AL 56.6 cm cubed LA Sys Volume Index AL 29.7 cm cubed/m squared Aorta at Sinotubular Diameter 3.3 cm IVC Diameter 2.0 cm M-MODE LA Ao Ratio MM 1.0 AV Cusp Separation MM 2.5 cm DOPPLER AV Peak Velocity 131.0 cm/s LVOT Peak Velocity 83.0 cm/s AV Area Cont Eq vti 3.3 cm squared AV Area Cont Eq pk 3.0 cm squared MV Peak Velocity 80.0 cm/s MV Area PHT 2.3 cm squared Mitral E to A Ratio 1.0 TV Peak Velocity 257.5 cm/s TR Peak Velocity 259.0 cm/s TR Peak Gradient 26.8 mmHg TV Peak E Velocity 69.0 cm/s Right Atrial Pressure 3.0 mmHg Pulmonary Artery Systolic Pressu 29.8 mmHg PV Peak Velocity 83.5 cm/s FINDINGS Left Ventricle Normal left ventricular size and systolic function, EF 65%. No regional wall motion abnormalities. Right Ventricle The right ventricle is normal in size and function. Right Atrium The right atrium is normal in size. Left Atrium The left atrium is normal in size. Mitral Valve Mild to moderate mitral valve regurgitation. Minimally thickened anterior mitral leaflet Aortic Valve Minimally thickened aortic valve Tricuspid Valve Trace to mild tricuspid valve regurgitation. Pulmonic Valve No gross abnormalities noted Pericardium Normal pericardium without effusion. Aorta Dilated ascending aorta measuring 4.37 cm. At the junction of sinotubular junction, the aorta measured 3.25 cm and at the level of the sinuses, it measured a 4.11 cm IVC Normal inferior vena cava. CONCLUSIONS Normal left ventricular size and systolic function, EF 65%. No regional wall motion abnormalities. Dilated ascending aorta measuring 4.37 cm. At the junction of sinotubular junction, the aorta measured 3.25 cm and at the level of the sinuses, it measured a 4.11 cm. Mild to moderate mitral valve regurgitation. Minimally thickened anterior mitral leaflet. Trace to mild tricuspid valve regurgitation. Minimally thickened aortic valve. Estimated pulmonary artery peak systolic pressure 30 mmHg There is no pericardial effusion. There are no intracardiac masses. No similar previous studies are available for comparison Dr Denise Pappas MD [facility] (Electronically Signed) Final Date: 08 April 2024 08:23 S
== END 2024-03-31 11:50 | disposition home or self-care (01) ==
LOC: RAD 11:50
PROVIDERS: PCP Electrodiagnostic Medicine; Visit Provider Nurse Practitioner Family
DX: I34.0 Nonrheumatic mitral (valve) insufficiency (principal); I77.819 Aortic ectasia, unspecified site; I49.9 Cardiac arrhythmia, unspecified; I47.10 Supraventricular tachycardia, unspecified; I48.91 Unspecified atrial fibrillation
CPT/HCPCS: 93306

== ENCOUNTER 2024-04-29 13:29 | Outpatient (CLI) | payer MEDICARE, SELFPAY ==
[2024-04-29 13:58] LABS: Blood Urea Nitrogen 9 mg/dL (8-23); Glomerular Filtration Rate 83.2 mL/min (90-130)
[2024-04-29] MEDS: iohexol 350 mg/mL 500 mL Btl (per mL) IV (14:08)
--- NOTE | 2024-04-29 14:30 | CT_ITS ---
WS: [id number] CTA THORACIC AORTA WITH AND WITHOUT CONTRAST HISTORY: ascending aortic aneurysm TECHNIQUE: CTA imaging of the thorax is performed with and without contrast. After noncontrast imagin g is performed, CT angiogram is performed during injection of Omnipaque 350; 100 mL IV.. Sagittal and coronal reconstructions, sagittal and coronal MIP imaging is submitted. All CT scans at [facility] use at least one of these dose optimization techniques: automated exposure control; mA and/or kV adjustment per patient size (includes targeted exams where dose is matched to clinical indication) ; or iterative reconstruction. DLP: 546.22 mGy.cm COMPARISON: 07/22/2020 CT. Echocardiogram 03/31/2024 Mild dilatation of the ascending thoracic aorta. Maximum diameter of the ascending aorta 4.5 cm. Sino tubular junction 3.7 cm. Sinus of Valsalva 4.2 cm. Mildly ectatic dilated ascending aorta tapers to t he arch. Descending aorta is normal. Scattered calcified plaque. No dissection. Mildly dilated pulmon sandor artery. No RIGHT heart strain. Moderate cardiomegaly. There is tricuspid regurgitation into the h epatic veins. No pulmonary mass or nodule. No pneumonia. Focal cortical thinning superior pole LEFT kidney. No adrenal mass. Prior cholecystectomy. Increase i n focal kyphosis centered at the thoracolumbar junction. CT/CT angio chest [id number] IMPRESSION: 1. Mild aneurysmal dilatation of the ascending thoracic aorta. Maximum diamete r 4.5 cm. No aortic dissection. Minimal increase in size since the chest CT of 07/22/2020. 2. Moderate cardiomegaly. 3. No pneumonia.
== END 2024-04-29 13:30 | disposition home or self-care (01) ==
LOC: RAD 13:30
PROVIDERS: PCP Electrodiagnostic Medicine; Visit Provider Nurse Practitioner Family
DX: I71.21 Aneurysm of the ascending aorta, without rupture (principal); I51.7 Cardiomegaly; I36.1 Nonrheumatic tricuspid (valve) insufficiency; Z90.49 Acquired absence of other specified parts of digestive tract; M40.204 Unspecified kyphosis, thoracic region; I48.0 Paroxysmal atrial fibrillation; R53.82 Chronic fatigue, unspecified; I10 Essential (primary) hypertension
CPT/HCPCS: 71275; 82565; 84520; 99214

== ENCOUNTER 2024-05-14 09:04 | Outpatient (CLI) | payer MEDICARE, SELFPAY ==
[2024-05-14 09:15] VITALS: BMI 30.1
--- NOTE | 2024-05-14 09:35 | ECG_ITS ---
[employer] Test Date: 2024-05-14 Pat Name: Geraldine Morris Department: Room: Gender: Female Director Of Brand Marketing: : 1955 Requested By: Denise Pappas Order Number: [id number] Alexandre MD: Denise Pappas M.D. Interpretive Statements Lung unchanged pre/post procedure; Intraprocedure shortess of breath; Symptoms resoled by discharge PROCEDURE: At the baseline, the EKG revealed normal sinus rhythm with a frequent PVCs.. The baseline heart was 58 bpm with a blood pressue of 159/100 mm of Hg Lexiscan was infused over a period of 20 seconds. A total of 0.4 milligrams of Lexiscan was infused. The stress phase was continued for a total of 5 minutes. Heart rate at the end of the stress phase was 74 bpm with a blood pressure 116/82 mm of Hg. The EKG at the peak infusion revealed disappearance of the PVCs.. Sestamibi was injected 20 seconds after the Lexiscan infusion. Heart rate at the end of the recovery phase was 73 bpm with a blood pressure of 127/72 mm of Hg. CONCLUSION: 1. No significant EKG changes with the LexiScan infusion 2. No LexiScan induced chest pain or cardiac arrhythmia. The baseline ventricular arrhythmia got improved with the Lexiscan infusion 3. Normal blood pressure and heart rate response 4. Sestamibi/sestamibi perfusion scan pending; see separate report. Electronically Signed On 05-14-2024 19:56:52 [employer] by Denise Pappas M.D. [email or web address]
--- NOTE | 2024-05-14 09:35 | NMCV_ITS ---
NM deric perf SPECT r/s* [id number] Geraldine Morris Age: 68 Gender: F : 1955 Exam Date: 05/14/2024 10:07 Ordering Phys: Denise Pappas MD ([email or web address]) Technologist: MARY Perera Exam Location: [facility] Indications: cp STRESS TEST Please [facility] for [facility] findings IMAGE PROTOCOL Rest/Stress 1 Lexiscan Day Radiopharmaceutical Dose (mCi) Administration Site Administered by Rest: Tc-99m 10.8 IV Virginia Stewart, RAW MATERIAL PLANNER Sestamibi Stress:Tc-99m 32.4 IV Virginia Cornellgle, RAW MATERIAL PLANNER Sestamibi Rest: 14-May-2024 60 Discovery 630 Stress: 14-May-2024 30 Discovery 630 0.4mg Lexiscan. Images obtained in supine and prone position. SPECT RESULTS Technical Quality: Good Raw Data Analysis: Normal Image Corrections: No attenuation or motion correction applied Summed Stress Score: 6 Summed Rest Score: 8 Summed Difference Score: 1 PERFUSION FINDINGS Small to moderate area of minimal to moderately decreased tracer uptake involving the basal and mid inferolateral, apical inferior and apical lateral segments. Minimal reversibility was noted in the apical inferior region. FUNCTIONAL RESULTS (calculated via Gated SPECT) Stress Image LV EF (%): 64 Stress EDV (mL):84 TID: 0.82 Stress ESV (mL):30 FUNCTIONAL FINDINGS: Segmental wall motion analysis revealing no gross wall motion abnormalities IMPRESSIONS 1. Myocardial perfusion imaging revealing small to moderate area of minimal to moderately decreased tracer uptake involving the inferolateral, apical lateral and apical inferior region with a very small area of reversibility suggesting myocardial scarring in the distribution of the left circumflex artery/right coronary artery with minimal cuauhtemoc-infarction ischemia. 2. Normal LV ejection fraction 64%. 3. LV wall motion analysis revealing no gross wall motion abnormalities. 4. Normal LV volume No similar previous studies are available for comparison Dr Denise Pappas MD [facility] (Electronically Signed) Final Date: 14 May 2024 14:02 S
[2024-05-14] MEDS: regadenoson 0.4 Mg/5 ml Syringe IVP (10:37)
[2024-05-14 10:45] VITALS: BP 127/72; PULSE 74
== END 2024-05-14 09:05 | disposition home or self-care (01) ==
LOC: CDL 09:05
PROVIDERS: PCP Electrodiagnostic Medicine; Visit Provider Internal Medicine Cardiovascular Disease
DX: Z98.61 Coronary angioplasty status (principal); R94.39 Abnormal result of other cardiovascular function study
CPT/HCPCS: 36415; 78452; 93017; 96374; A9500; J2785

== ENCOUNTER 2024-06-03 20:00 | Outpatient (CLI) | payer MEDICARE, SELFPAY | END 2024-06-03 20:01 | disposition home or self-care (01) | LOC: SLEEP 06-04 00:27 | PROVIDERS: PCP Electrodiagnostic Medicine; Visit Provider Nurse Practitioner Family | DX: G47.33 Obstructive sleep apnea (adult) (pediatric) (principal) | CPT/HCPCS: 95810 ==

== ENCOUNTER → 2024-10-28 10:24 | Outpatient (BNVA) | payer MEDICARE, SELFPAY | PROVIDERS: PCP Electrodiagnostic Medicine; Visit Provider Nurse Practitioner Family | DX: I48.0 Paroxysmal atrial fibrillation (principal); Z79.01 Long term (current) use of anticoagulants; I71.21 Aneurysm of the ascending aorta, without rupture; R53.82 Chronic fatigue, unspecified; Z87.891 Personal history of nicotine dependence; R03.0 Elevated blood-pressure reading, without diagnosis of hypertension; R06.02 Shortness of breath; R00.2 Palpitations | CPT/HCPCS: 36415; 80048; 83880; 85025; 99214 ==

== ENCOUNTER 2025-01-30 14:06 | Outpatient (CLI) | payer MEDICARE, SELFPAY ==
--- NOTE | 2025-01-30 | MM_ITS ---
WS: [id number] BILATERAL 3D TOMOSYNTHESIS DIGITAL SCREENING MAMMOGRAPHY WITH CAD CLINICAL INFORMATION: ANNUAL SCREENING HISTORY: Screening mammogram. No current complaints. COMPARISON: 2023 TECHNIQUE: Bilateral CC and MLO views. FINDINGS: Scattered fibroglandular densities bilaterally. No suspicious focal mass, asymmetry, calcifications, or architectural distortion. No evidence of malignancy. Secretory calcifications RIGHT breast. Vascular calcifications. Lucent centered calcification RIGHT breast. MM/MM scr tomosynthesis [id number] IMPRESSION: DENSITY: There are scattered areas of fibroglandular density. BI-RADS: 2 - Benign. FOLLOW UP: 1 Year Follow-up Recommend return to annual screening mammography.
--- NOTE | 2025-01-30 14:14 | XR_ITS ---
WS: [email or web address] SCREENING DEXA SCAN [place] CLINICAL INFORMATION: OSTEPOROSIS COMPARISON: 2022 FINDINGS: The L1-L4 bone mineral density measures 1.347 g/cm2. This corresponds to a T score score of 1.4 and Z score of 2.4. Left femoral neck bone mineral density measures 1.043 g/cm2. This corresponds to a T score of 0.3 and Z score of 1.2. Right femoral neck bone mineral density measures 0.909 g/cm2. This corresponds to a T score -0.8of and Z score of 0.2. Mean femoral neck bone mineral density measures 0.976 g/cm2. This corresponds to a T score of -0.3 and Z score of 0.7. XR/XR DEXA axial skeleton* [id number] IMPRESSION: Normal bone mineralization lumbar spine and femoral necks.. Patient's FRAX calculated 10 year probability for major osteoporotic fracture i s 13.5% and osteoporotic hip fracture is 1.3%. Bone density femoral necks increased 0.6%
== END 2025-01-30 14:07 | disposition home or self-care (01) ==
LOC: RAD 14:07
PROVIDERS: PCP Electrodiagnostic Medicine; Visit Provider Electrodiagnostic Medicine
DX: Z12.31 Encounter for screening mammogram for malignant neoplasm of breast (principal); Z13.820 Encounter for screening for osteoporosis; R92.323 Mammographic fibroglandular density, bilateral breasts; R92.1 Mammographic calcification found on diagnostic imaging of breast
CPT/HCPCS: 77063; 77067; 77080

== ENCOUNTER 2025-04-16 16:34 | Outpatient (CLI) | payer MEDICARE, SELFPAY ==
--- NOTE | 2025-04-16 16:55 | CT_ITS ---
WS: [id number] CTA THORACIC AORTA WITH AND WITHOUT CONTRAST HISTORY: I71.21 - Aneurysm of the ascending aorta, without rupture TECHNIQUE: CTA imaging of the thorax is performed with and without contrast. After noncontrast imaging is performed, CT angiogram is performed during injection of Omnipaque 350; 100 mL IV.. Sagittal and coronal reconstructions, sagittal and coronal MIP imaging is submitted. All CT scans at [facility] use at least one of these dose optimization techniques: automated exposure control; mA and/or kV adjustment per patient size (includes targeted exams where dose is matched to clinical indication); or iterative reconstruction. DLP: 581.23 mGy.cm COMPARISON: 04/29/2024 Good contrast opacification of the thoracic aorta. Scattered calcified plaque. Good contrast injection. No aortic dissection. Reidentified is the mild dilatation of the ascending aorta with a maximum diameter of 4.4 cm. Through the arch the aorta returns to normal size. Descending thoracic aorta is normal size at 2.7 cm. Normal appearance of the sinotubular junction and aortic root. Mild cardiomegaly. No pericardial or pleural effusions. Pulmonary artery size is normal. No RIGHT heart strain. No mediastinal or hilar adenopathy. Cortical thinning upper pole LEFT kidney. No adrenal mass. Visualized liver is normal. Cervical spondylosis. Lungs are clear. No pneumonia. CT/CT angio chest [id number] IMPRESSION: 1. Stable mild aneurysmal dilatation ascending thoracic aorta, maximum diamete r 4.4 cm. 2. Mild calcified atheromatous plaque throughout the thoracic aorta with no si gnificant progression. 3. Mild cardiomegaly. 4. No RIGHT heart strain.
[2025-04-16] MEDS: iohexol 350 mg/mL 500 mL Btl (per mL) IV (17:59)
[2025-04-16 18:47] LABS: Blood Urea Nitrogen 15 mg/dL (8-23)
== END 2025-04-16 16:35 | disposition home or self-care (01) ==
LOC: RAD 16:37
PROVIDERS: PCP Electrodiagnostic Medicine; Visit Provider Nurse Practitioner Family
DX: I71.21 Aneurysm of the ascending aorta, without rupture (principal); I70.0 Atherosclerosis of aorta; I51.7 Cardiomegaly
CPT/HCPCS: 71275; 82565; 84520

== ENCOUNTER → 2025-06-03 10:03 | Outpatient (BNVA) | payer MEDICARE, SELFPAY | PROVIDERS: PCP Electrodiagnostic Medicine; Visit Provider Internal Medicine Cardiovascular Disease | DX: I71.20 Thoracic aortic aneurysm, without rupture, unspecified (principal); I48.91 Unspecified atrial fibrillation; Z79.01 Long term (current) use of anticoagulants; I10 Essential (primary) hypertension; R53.83 Other fatigue; Z87.891 Personal history of nicotine dependence | CPT/HCPCS: 99214 ==